=== PATIENT | female | born 1995 | race African-American/Black ===

== ENCOUNTER 2022-09-10 11:41 | Emergency (ER) | payer OTHER ==
[2022-09-10 11:53] VITALS: BMI 33.3
[2022-09-10] MEDS ORDERED: ALBUTEROL SO4 2.5/IPRATROPIUM 0.5 INH SOL 3 ML VIAL.NEB. NEB ONE ×4 (12:39→14:17)
[2022-09-10] MEDS ORDERED: DEXAMETHASONE SOD PHOSPHATE 10 MG/1 ML VIAL IM ONE (13:31)
[2022-09-10] MEDS ORDERED: DEXAMETHASONE SOD PHOSPHATE 10 MG/1 ML VIAL ONE (14:19)
[2022-09-10 14:38] VITALS: BP 141/94; PULSE 92; RESP 20; TEMP 97.4
[2022-09-10] MEDS ORDERED: MIDAZOLAM HCL 5 MG/1 ML Single Dose Vial ONE (14:40)
== END 2022-09-10 15:17 | disposition home or self-care (01) ==
LOC: JER 11:41
PROC: 3E023GC Introduction of Other Therapeutic Substance into Muscle, Percutaneous Approach (ICD-10-PCS; principal; 2022-09-10)
PROC: 3E0F7GC Introduction of Other Therapeutic Substance into Respiratory Tract, Via Natural or Artificial Opening (ICD-10-PCS; 2022-09-10)
PROC: 3E0F7GC Introduction of Other Therapeutic Substance into Respiratory Tract, Via Natural or Artificial Opening (ICD-10-PCS; 2022-09-10)
DX: R05.9 Cough, unspecified (principal); J45.21 Mild intermittent asthma with (acute) exacerbation; Z20.822 Contact with and (suspected) exposure to COVID-19
CPT/HCPCS: 0241U-QW; 71045-TC-FY; 99284-25; J1100

== ENCOUNTER 2022-11-26 17:45 | Emergency (ER) | payer OTHER ==
[2022-11-26 17:57] VITALS: BP 123/67; PULSE 89; RESP 18; BMI 38.7
== END 2022-11-26 20:46 | disposition home or self-care (01) ==
LOC: JER 17:45 → JERFT 17:45
DX: T18.9XXA Foreign body of alimentary tract, part unspecified, initial encounter (principal)
CPT/HCPCS: 70360-TC-FY; 71046-TC-FY; 74018-TC-FY; 99283-25

== ENCOUNTER 2023-05-20 20:22 | Emergency (ER) | payer OTHER ==
[2023-05-20 20:30] VITALS: BP 150/92; BMI 39.0
[2023-05-20 22:07] LABS: BASO % 0.4 % (0-2.0); EOS % 0.1 % (0-4.5); HEMATOCRIT 36.8 % (32.4-45.2); HEMOGLOBIN 12.4 GM/dL (10.7-15.3); LYMPH % 11.4 % (8-40); MCHC 33.6 g/dl (32.0-36.0); MEAN CELL VOLUME 92.1 fl (80-96); MEAN PLT VOLUME 9.2 fl (7.5-11.1); MONO % 3.9 % (3.8-10.2); NEUT % 84.2 % (42.8-82.8); PLATELET COUNT 246 10^3/uL (134-434); RBC 3.99 M/mm3 (3.60-5.2); RDW 12.9 % (11.6-15.6); WHITE BLOOD COUNT 8.4 K/mm3 (4.0-10.0)
[2023-05-20 22:25] LABS: POTASSIUM 4.4 mmol/L (3.5-5.1)
[2023-05-20 22:26] LABS: CALCIUM 8.8 mg/dL (8.5-10.1)
[2023-05-20 22:27] LABS: ALBUMIN 3.7 g/dl (3.4-5.0); BLOOD UREA NITROGEN 17.5 mg/dL (7-18)
[2023-05-20 22:30] LABS: CREATININE 1.1 mg/dL (0.55-1.3)
[2023-05-20 22:32] LABS: BILIRUBIN,TOTAL 0.3 mg/dL (0.2-1); TOT PROT 7.6 g/dl (6.4-8.2)
[2023-05-20 23:33] VITALS: PULSE 99; RESP 18; TEMP 98
== END 2023-05-20 23:34 | disposition home or self-care (01) ==
LOC: JER 20:22
DX: R05.9 Cough, unspecified (principal); R35.0 Frequency of micturition; U07.1 COVID-19
CPT/HCPCS: 0241U-QW; 36415; 71045-TC-FY; 80053; 84703; 85025; 99284-25